=== PATIENT | female | born 1995 ===

== ENCOUNTER 2017-03-19 13:32 | Emergency (ER) | payer OTHER ==
[2017-03-19 14:42] VITALS: BP 133/83; PULSE 89; RESP 19; TEMP 98.7; O2SAT 100
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
== END 2017-03-19 18:20 | disposition home or self-care (01) ==
LOC: H.ER 13:32
DX: S16.1XXA Strain of muscle, fascia and tendon at neck level, initial encounter (principal); M54.9 Dorsalgia, unspecified; V43.52XA Car driver injured in collision with other type car in traffic accident, initial encounter; Y92.410 Unspecified street and highway as the place of occurrence of the external cause

== ENCOUNTER 2018-01-28 18:03 | Observation (INO) | payer MEDICAID, OTHER ==
[2018-01-28 19:14] VITALS: BMI 38.2
[2018-01-28] MEDS ORDERED: Lactated Ringer's 1,000 ML IV SCH ×2 (19:15→22:00)
[2018-01-28 20:27] LABS: BASO # 0.1 K/uL (0.0-0.2); BASO % 0.5 % (0.0-2.0); EOS % 0.2 % (0.0-4.0); HEMOGLOBIN 12.8 g/dL (12.0-16.0); LYMPH # 0.6 K/uL (1.0-4.3); LYMPH % 4.1 % (20.0-40.0); MEAN CELL VOLUME 89.3 fl (81.0-99.0); MEAN CORPUSCULAR HEMOGLOBIN 29.9 pg (27.0-31.0); MEAN CORPUSCULAR HGB CONC 33.5 g/dL (33.0-37.0); MEAN PLATELET VOLUME 9.1 fl (7.2-11.7); MONO # 0.7 K/uL (0.0-0.8); MONO % 4.4 % (0.0-10.0); NEUT # 14.2 K/uL (1.8-7.0); NEUT % 90.8 % (50.0-75.0); PLATELET COUNT 288 K/uL (130-400); RBC 4.28 Mil/uL (3.80-5.20); RED CELL DISTRIBUTION WIDTH 14.1 % (11.5-14.5); WHITE BLOOD COUNT 15.6 K/uL (4.8-10.8)
[2018-01-28 20:37] LABS: ALBUMIN 3.7 g/dL (3.5-5.0); ALT/SGPT 64 U/L (9-52); AMYLASE 90 U/L (30-110); AST/SGOT 38 U/L (14-36); BLOOD UREA NITROGEN 6 mg/dl (7-17); CALCIUM 9.5 mg/dL (8.4-10.2); GFR AFRICAN-AMERICAN > 60; GFR NON-AFRICAN AMERICAN > 60; LIPASE 66 U/L (23-300)
--- NOTE | 2018-01-28 21:04 | US ---
EXAM: US Abdomen Complete CLINICAL HISTORY: 22 years old, female; Signs and symptoms; Nausea and vomiting; ; Additional info: N/v TECHNIQUE: Real-time ultrasound of the abdomen (complete) with image documentation. COMPARISON: No relevant prior studies available. FINDINGS: Liver: Liver measures 15.4 CM longitudinally. No intrahepatic bile duct dilation. Portal vein is patent with normal direction of flow. Gallbladder: Gallbladder wall measures 2 mm in thickness. No sonographic Moreau's sign. No stones. Common bile duct: Common bile duct measures 4 mm in diameter. No stones. No dilation. Pancreas: Unremarkable as visualized. Kidneys: Right kidney measures 11 CM longitudinally. Left kidney measures 11.3 CM longitudinally. No stones. No hydronephrosis. Spleen: Spleen measures 9.4 CM longitudinally. Aorta: Unremarkable. No aneurysm. Inferior vena cava: Unremarkable. IMPRESSION: Unremarkable ultrasound of the abdomen.
[2018-01-28 21:25] LABS: MONOCYTE 6 % (0-10); TOTAL CELLS COUNTED 100
[2018-01-28 21:26] LABS: HYPOCHROMIC SLIGHT; PLATELET ESTIMATE NORMAL (NORMAL)
[2018-01-28 21:32] LABS: LYMPHOCYTE 2 % (20-50); NEUTROPHIL 89 % (42-75); REACTIVE LYMPHOCYTES 3 % (0-0)
--- NOTE | 2018-01-28 21:57 | CP.PCM.CON ---
History of Present Illness - History of Present Illness History of Present Illness: General Surgery Consult Note for Dr. Richards This is a 22F who is 28 weeks . She has no medical or surgical history she presents with one day history of abdominal pain which she said says is in the upper middle part of her stomach. It started this AM after a simple breakfast of cornbread and an orange. She reports one episode of diarrhea, she also reports one episode of non bloody non bilious vomitus. She reports she has never had a similar event like this in the past. She denies any subjective fevers at home. She denies chest pain or SOB. PMH: none PSH: none ALL: NKDA Social: denies tobacco, etoh and drugs Review of Systems - Review of Systems All systems: reviewed and no additional remarkable complaints except - Constitutional Constitutional: Anorexia. absent: Fever, Malaise - Respiratory Respiratory: absent: Dyspnea - Gastrointestinal Gastrointestinal: Abdominal Pain, Diarrhea, Nausea, Vomiting. absent: Hematemesis, Melena - Genitourinary Genitourinary: absent: Change in Urinary Stream Past Patient History - Past Social History Smoking Status: Never Smoked - PSYCHIATRIC Hx Substance Use: No - SURGICAL HISTORY Hx Surgeries: No - ANESTHESIA Hx Anesthesia: No Meds Allergies/Adverse Reactions: Allergies Allergy/AdvReac Type Severity Reaction Status Date / Time No Known Allergies Allergy Verified 01/28/18 20:09 - Medications Medications: Current Medications Lactated Ringer's (Lactated Ringer's) 1,000 mls @ 999 mls/hr IV .Q1H1M [facility] Last Admin: 01/28/18 19:55 Dose: 999 mls/hr Physical Exam - Constitutional Appears: Non-toxic, No Acute Distress - Head Exam Head Exam: ATRAUMATIC, NORMOCEPHALIC - Eye Exam Eye Exam: EOMI, Normal appearance - ENT Exam ENT Exam: Mucous Membranes Moist - Respiratory Exam Respiratory Exam: NORMAL BREATHING PATTERN - Cardiovascular Exam Cardiovascular Exam: +S1, +S2 - GI/Abdominal Exam GI & Abdominal Exam: Soft, Tenderness. absent: Distended, Firm, Guarding, Hernia, Rigid - Extremities Exam Extremities exam: Positive for: normal inspection - Neurological Exam Neurological exam: Alert, Oriented x3 - Psychiatric Exam Psychiatric exam: Normal Affect, Normal Mood - Skin Skin Exam: Dry, Intact Results - Labs Result Diagrams: 01/28/18 20:15 01/28/18 20:15 Labs: Laboratory Results - last 24 hr 01/28/18 01/28/18 20:15 20:15 WBC 15.6 H RBC 4.28 Hgb 12.8 Hct 38.2 MCV 89.3 MCH 29.9 MCHC 33.5 RDW 14.1 Plt Count 288 MPV 9.1 Neut % (Auto) 90.8 H Lymph % (Auto) 4.1 L [place] % (Auto) 4.4 Eos % (Auto) 0.2 Baso % (Auto) 0.5 Neut # (Auto) 14.2 H Lymph # (Auto) 0.6 L [place] # (Auto) 0.7 Eos # (Auto) 0.0 Baso # (Auto) 0.1 Neutrophils % (Manual) 89 H Band Neutrophils % TEST NOT PERFORMED Lymphocytes % (Manual) 2 L Reactive Lymphs % 3 H Monocytes % (Manual) 6 Platelet Estimate Normal Hypochromasia (manual) Slight Macrocytosis (manual) Slight Sodium 143 Potassium 3.6 Chloride 105 Carbon Dioxide 20 L Anion Gap 22 H BUN 6 L Creatinine 0.4 L Est GFR ( Amer) > 60 Est GFR (Non-Af Amer) > 60 Random Glucose 86 Calcium 9.5 Total Bilirubin 1.1 AST 38 H ALT 64 H Alkaline Phosphatase 105 Lactate Dehydrogenase 427 Total Protein 7.6 Albumin 3.7 Globulin 3.8 Albumin/Globulin Ratio 1.0 Amylase 90 Lipase 66 - Imaging and Cardiology US - abdomen Status: Image reviewed by me, Report reviewed by me Assessment & Plan - Assessment and Plan (Free Text) Assessment: 22F with abdominal pain VSS Leukocytosis 15.6 Mild transaminitis Abdominal US: GB wall 2mm, cbd <4mm, GB with possibly small amount of sludge Pain unlikely from GB source NPO IVF IV ABX MRI to rule out appendicitis Patient is reluctant to receive MRI. I discussed with the patient the possible risks to the fetus if a appendicitis is missed. The patient expressed understanding of the risk however she feels that she will experience claustrophobia in the MRI machine. Patient requested time to decide. She understands that at the moment the MRI is ordered and that it is the advice of the surgical team that she receive the study to rule in or rule out an appendicitis. Discussed with Dr. Maurice Joel PGY2
[2018-01-28] MEDS ORDERED: cefTRIAXone 2 GM in Sodium Chloride 0.9% 100 ML IVPB SCH (23:07)
--- NOTE | 2018-01-29 07:40 | OBHP ---
Datetime: 01/28/2018 21:53 IP Adm Impression: Term, intrauterine IP Chief Complaint Other: n/v/d IP Admit Plan: Admit to unit; Observation/Evaluation Admit Comment, IP Provider: cc: nausea, vomiting and diarrhea HPI: 22 yO @28.4 (KASSIE 04/18) wks IUP presents to [facility] for nausea, vomiting, and diarrhea. Per p t, her symptoms started this morning after she has some orange juice. Pt had 1x episode of emesis thi s AM (NBNB), and around 2PM she started having loose BMs. 4 BM in total and the last one was baout 2h rs ago and very watery. Per pt, she had dinner at a resturant with her family last night. No one else has similar symptoms at home, and this is the first episode of n/v/d during this thus far, with occasional epigastric pain x 1day. [facility] ObHx: prime, no complictions in this thus far, no STIs PMH: denies Surgh: denies FH: DM in father SH: denies ETOH, smoking and illict drug use Allergies: NKDA Meds: PNV PE Gen: NAD Cardio: S1S2 no additional heart sounds Resp: Clear breath sounds b/l Abdomen: Gravid, NT throughout the abdomen (RUQ neg basurto's sign, and no RLQ tenderness), BS+ Neuro: AAO x 3 Ext: mild pedal edema b/l FM: 150, catagory I A/P: 22 YO @ 38.4wks IUP (KASSIE 04/18) is admitted for obs, R/O appendicitis. Blood work reviewe d with pts, mild elevation of LFTs with WBC of 15.6. Pt remains afebrile. Abdominal u/s no sig findin gs. -will admit pt for obs -Surgery consulted; R/O appendicitis per surgery recs MRI of abdomen in AM -NPO -IVF -vitals -will continue to monitor patients status -management and plan discussed with patient, she agrees with plan -FM in AM Rachel Hummel, PGY I OB Hospitalist note: Pt seen and examiend...spoek with General surgical garment fitter and Dr Richards...w ill be re-evaluated (had high WBC/LFT's and sono done)...MAHNDO Pelvic Type - PN: Not Done Extremities - PN: Normal Abdomen - PN: Normal Back - PN: Normal Breast - PN: Normal Lungs - PN: Normal Heart - PN: Normal Thyroid - PN: Not Done Neurologic - PN: Normal HEENT - PN: Normal General - PN: Normal FHR - Baseline A Provider: 150 EGA AdmitDate IP: 28.4 Vital Signs Provider: Reviewed Vital Signs Provider Details: tachycardia IP Chief Complaint: Other NICHD Variability Prov Fetus A: Moderate 6-25bpm NICHD Accel Fetus A IP Provider: 15X15 FHR Category Provider Fetus A: Category I Genitourinary Exam: Normal DTRs - PN: Not Done
--- NOTE | 2018-01-29 07:55 | OBADHP ---
Datetime: 01/28/2018 21:53 IP Chief Complaint Other: n/v/d Admit Comment, IP Provider: cc: nausea, vomiting and diarrhea HPI: 22 yO @28.4 (KASSIE 04/18) wks IUP presents to [facility] for nausea, vomiting, and diarrhea. Per p t, her symptoms started this morning after she has some orange juice. Pt had 1x episode of emesis thi s AM (NBNB), and around 2PM she started having loose BMs. 4 BM in total and the last one was baout 2h rs ago and very watery. Per pt, she had dinner at a resturant with her family last night. No one else has similar symptoms at home, and this is the first episode of n/v/d during this thus far, with occasional epigastric pain x 1day. [facility] ObHx: prime, no complictions in this thus far, no STIs PMH: denies Surgh: denies FH: DM in father SH: denies ETOH, smoking and illict drug use Allergies: NKDA Meds: PNV PE Gen: NAD Cardio: S1S2 no additional heart sounds Resp: Clear breath sounds b/l Abdomen: Gravid, NT throughout the abdomen (RUQ neg basurto's sign, and no RLQ tenderness), BS+ Neuro: AAO x 3 Ext: mild pedal edema b/l FM: 150, catagory I A/P: 22 YO @ 38.4wks IUP (KASSIE 04/18) is admitted for obs, R/O appendicitis. Blood work reviewe d with pts, mild elevation of LFTs with WBC of 15.6. Pt remains afebrile. Abdominal u/s no sig findin gs. -will admit pt for obs -Surgery consulted; R/O appendicitis per surgery recs MRI of abdomen in AM -NPO -IVF -vitals -will continue to monitor patients status -management and plan discussed with patient, she agrees with plan -FM in AM Rachel Estephanie, PGY I OB Hospitalist note: Pt seen and examiend...spoek with General surgical corsetier and Dr Richards...w ill be re-evaluated (had high WBC/LFT's and sono done)...MAHNDO Pelvic Type - PN: Not Done Extremities - PN: Normal Abdomen - PN: Normal Back - PN: Normal Breast - PN: Normal Lungs - PN: Normal Heart - PN: Normal Thyroid - PN: Not Done Neurologic - PN: Normal HEENT - PN: Normal General - PN: Normal FHR - Baseline A Provider: 150 Vital Signs Provider: Reviewed Vital Signs Provider Details: tachycardia IP Chief Complaint: Other NICHD Variability Prov Fetus A: Moderate 6-25bpm NICHD Accel Fetus A IP Provider: 15X15 FHR Category Provider Fetus A: Category I Genitourinary Exam: Normal DTRs - PN: Not Done EGA AdmitDate IP: 28.4 IP Adm Impression: Term, intrauterine IP Admit Plan: Admit to unit; Observation/Evaluation
[2018-01-29] MEDS ORDERED: cefTRIAXone 2 GM in Sodium Chloride 0.9% 100 ML IVPB SCH (09:00)
--- NOTE | 2018-01-29 09:44 | MRI ---
PROCEDURE: MRI Abdomen without contrast HISTORY: COMPARISON: None available. TECHNIQUE: Multisequence, multiplanar MR images of the abdomen without gadolinium contrast enhancement. FINDINGS: LIVER: Unremarkable. GALLBLADDER: Unremarkable. SPLEEN: Unremarkable. ADRENALS: Unremarkable. KIDNEYS: There is asymmetrical fullness of the right intrarenal collecting system. The proximal right ureter does not appear distended /dilated Mild mass effect from the intrauterine gestation is a consideration. PANCREAS: Unremarkable. AORTA: No aneurysm. ASCITES: None. PERITONEUM: Unremarkable. LYMPH NODES: Unremarkable. OTHER FINDINGS: There is a single intrauterine gestation -patient is clinically expected to be 28 weeks. The fetus appears cephalic. No ventriculomegaly noted. The study is not for anatomy and is limited in that regard. The right ovary with tiny follicles high in position is believe identified just above the iliac crest on series 7, image 45. No adnexal masses here on the right side noted. The absolute identification of the appendix however is problematic. It may be a thin tubular structure above this high right ovary. However this is not absolutely the right colon in this segment is more is decompressed under compressed by a the intrauterine gestation. No gross fluid collection appreciated around the visualized compressed right colon is noted. IMPRESSION: The exam is limited in excluding any mild degrees of appendicitis. No large typical right sided appendiceal abscess is identified. What may be a thin appendix appears grossly unremarkable - adjacent to decompressed right colonic loops. No right adnexal masses noted. Single intrauterine gestation in cephalic presentation as detailed above. Clinical dates are 28 weeks. There is mild fullness to the right intrarenal collecting system as detailed above. Fol
--- NOTE | 2018-01-29 11:38 | CP.PCM.PN ---
Subjective - Date & Time of Evaluation Date of Evaluation: 01/29/18 Time of Evaluation: 11:36 - Subjective Subjective: SURGERY NOTE FOR DR. SANFORD 22F seen and examined at bedside. Patient states symptoms have resolved. Denies abdominal pain, nausea, vomiting, fevers, and chills. Objective - Medications Medications: Current Medications Lactated Ringer's (Lactated Ringer's) 1,000 mls @ 999 mls/hr IV .Q1H1M [facility] Last Admin: 01/28/18 19:55 Dose: 999 mls/hr Lactated Ringer's (Lactated Ringer's) 1,000 mls @ 125 mls/hr IV .Q8H [facility] Last Admin: 01/28/18 22:27 Dose: 125 mls/hr Ceftriaxone Sodium 2 gm/ (Sodium Chloride) 100 mls @ 100 mls/hr IVPB DAILY [facility] PRN Reason: Protocol Last Admin: 01/28/18 23:16 Dose: 100 mls/hr - Labs Labs: 01/28/18 20:15 01/28/18 20:15 - Constitutional Appears: Well, Non-toxic, No Acute Distress - Respiratory Exam Respiratory Exam: Clear to Ausculation Bilateral, NORMAL BREATHING PATTERN - Cardiovascular Exam Cardiovascular Exam: REGULAR RHYTHM, +S1, +S2 - GI/Abdominal Exam GI & Abdominal Exam: Soft. absent: Firm, Guarding, Rigid, Tenderness, Rebound Additional comments: Patient is 28weeks - Neurological Exam Neurological Exam: Alert, Awake - Psychiatric Exam Psychiatric exam: Normal Affect, Normal Mood - Skin Skin Exam: Dry, Intact, Normal Color, Warm Assessment and Plan - Assessment and Plan (Free Text) Assessment: 22F who is 28 weeks presents with abdominal pain which has resolved MRI: no sign of inflammation near region of appendix Plan: - start clear liquid diet - advance diet as tolerated - No surgical intervention at this time Discussed with Maurice Walden, PGY2
--- NOTE | 2018-01-29 14:23 | OBDCSUM ---
Datetime: 01/29/2018 14:12 Discharged to, Provider: Home Follow up at, Provider: [facility] Disch Instr Activity: Normal activity Disch Instr Diet: Regular Discharge Instructions, Provider: Routine instructions given Discharge Time: 01/29/2018 14:12 Follow up in weeks, Provider: follow up scheduled well OB visit Discharge Diagnosis Prov Other: nausea, vomiting, abd pain at 28+ weeks
--- NOTE | 2018-01-29 14:24 | OBPN ---
Datetime: 01/29/2018 14:17 IP Progress Impression Other: abdominal pain resolved IP Progress Plan: Discharge Contraction Comments Provider: None FHR - Baseline A Provider: 140's IP Progress Note Comment: 22 yo G1 at 28+4 wks admitted for observation for abdominal pain, nausea, vomting, diarrhea Pt had MRI today, cleared by surgery Pt reports that she is feeling much better, tolerating clears Discharge home Pt will schedule an appoint by next week NICHD Accel Fetus A IP Provider: 15X15 FHR Category Provider Fetus A: Category I NICHD Variability Prov Fetus A: Moderate 6-25bpm NICHD Decel Fetus A IP Provider: None Datetime: 01/28/2018 21:53 Vital Signs Provider: Reviewed Vital Signs Provider Details: tachycardia
[2018-01-29 19:03] VITALS: BP 116/77; PULSE 98; RESP 18; TEMP 98.2
== END 2018-01-29 14:59 | disposition home or self-care (01) ==
LOC: H.EROB2 18:03 → H.OB/GYN 21:50
PROVIDERS: ADMIT Obstetrics & Gynecology; ATTEND Obstetrics & Gynecology
DX: O26.893 Other specified pregnancy related conditions, third trimester (principal); O21.9 Vomiting of pregnancy, unspecified; R10.13 Epigastric pain
CPT/HCPCS: 74181; 76700; 80053; 82150; 83615; 83690; 85025; 96374; 99285; G0378; J0696; J0780; J7120